=== PATIENT | female | born 1955 | race Caucasian/White ===

== ENCOUNTER 2021-06-03 20:34 | Inpatient (IN) | payer MEDICARE, OTHER ==
[~2021-06-03] VITALS: Ht 167.6 cm; Wt 100.7 kg
--- NOTE | 2021-06-03 20:34 | NUR ---
[id number] FROM [facility] FOR ABD PAIN X 3MO, REPORT OF BLOOD IN VOMIT THIS AM. PT S/P LAPAROTOMY; DRESSING TO ABD C/D/I. A/OX2. TOLERATING O2 4LPM AT 98% CONNECTED PT TO POX AND MONITOR.
--- NOTE | 2021-06-03 21:23 | NUR ---
LFA #20G S/L; PATENT AND INTACT
[2021-06-03 21:31] LABS: BASOPHILS % (AUTO) 0.4 % (0.0-2.0); EOSINOPHILS % (AUTO) 0.5 % (0.0-6.0); HEMATOCRIT 27 % (33-45); HEMOGLOBIN 8.9 g/dL (11.5-14.8); LYMPHOCYTES # (AUTO) 0.2 K/uL (0.8-4.8); LYMPHOCYTES % (AUTO) 2.1 % (20.0-44.0); MEAN CORPUSCULAR HGB CONC 33 g/dl (31.0-36.0); MEAN CORPUSCULAR VOLUME 84 fL (82-100); MONOCYTES # (AUTO) 0.8 K/uL (0.1-1.30); MONOCYTES % (AUTO) 7.2 % (2.0-12.0); NEUTROPHILS # (AUTO) 9.7 K/uL (1.8-8.9); NEUTROPHILS % (AUTO) 89.8 % (43.0-81.0); PLATELET COUNT (AUTO) 192 K/uL (150-450); RED BLOOD CELL COUNT(AUTO) 3.27 MIL/uL (4.0-5.2); WHITE BLOOD COUNT (AUTO) 10.8 K/uL (4.3-11.0)
[2021-06-03 21:45] LABS: CALCIUM, SERUM 7.5 mg/dL (8.5-10.1); CREATININE 0.7 mg/dL (0.6-1.3); POTASSIUM 3.9 mmol/L (3.5-5.1)
--- NOTE | 2021-06-03 21:45 | NUR ---
URINE COLLECTED AND SENT TO LAB
[2021-06-03 21:59] LABS: ALBUMIN 1.6 g/dL (3.4-5.0); BILIRUBIN,DIRECT 0.6 mg/dL (0.0-0.2); BILIRUBIN,TOTAL 0.9 mg/dL (0.2-1.0); TOTAL PROTEIN, SERUM 6.2 g/dL (6.4-8.2)
[2021-06-03 22:09] LABS: BILIRUBIN,URINE SMALL (NEGATIVE); COLOR,URINE YELLOW (YELLOW); LEUKOCYTE ESTERASE ,URINE NEGATIVE (NEGATIVE); NITRITE, URINE NEGATIVE (NEGATIVE); PROTEIN,URINE NEGATIVE (NEGATIVE); UGLUCOSE NEGATIVE (NEGATIVE)
[2021-06-03 22:12] LABS: BACTERIA,URINE 1+ /HPF (None Seen); SQUAMOUS EPITHELIAL CELL,UR 21-50 /HPF (None Seen)
--- NOTE | 2021-06-03 22:51 | NUR ---
PT TAKEN TO CT VIA JUAN
[2021-06-03] MEDS ORDERED: IOHEXOL-300 100 ML VIAL IV ONE (22:54)
--- NOTE | 2021-06-04 | NUR ---
MRSA SWAB COLLECTED AND SENT TO LAB. PATIENT'S BELONGINGS LIST DONE.
[2021-06-04] MEDS ORDERED: PANTOPRAZOLE 40 MG VIAL ONE ×3 (01:34→09:11)
[2021-06-04] MEDS ORDERED: PANTOPRAZOLE 40 MG VIAL IV ONE (02:00)
--- NOTE | 2021-06-04 02:02 | NUR ---
CALLED [facility] FOR POSS TRANSFER. SX WAS DONE @ [facility]. PER [facility], NO BEDS AVAILABLE. CAN TRY IN AM.
[2021-06-04 02:47] LABS: BASOPHILS % (AUTO) 0.1 % (0.0-2.0); EOSINOPHILS % (AUTO) 0.6 % (0.0-6.0); HEMATOCRIT 26 % (33-45); HEMOGLOBIN 8.5 g/dL (11.5-14.8); LYMPHOCYTES # (AUTO) 0.4 K/uL (0.8-4.8); LYMPHOCYTES % (AUTO) 3.5 % (20.0-44.0); MEAN CORPUSCULAR HGB CONC 33 g/dl (31.0-36.0); MEAN CORPUSCULAR VOLUME 83 fL (82-100); MONOCYTES # (AUTO) 0.8 K/uL (0.1-1.30); MONOCYTES % (AUTO) 7.2 % (2.0-12.0); NEUTROPHILS # (AUTO) 9.3 K/uL (1.8-8.9); NEUTROPHILS % (AUTO) 88.6 % (43.0-81.0); PLATELET COUNT (AUTO) 198 K/uL (150-450); RED BLOOD CELL COUNT(AUTO) 3.15 MIL/uL (4.0-5.2); WHITE BLOOD COUNT (AUTO) 10.5 K/uL (4.3-11.0)
[2021-06-04] MEDS ORDERED: LABETALOL 20 MG/4 ML VIAL IV PRN (03:30)
[2021-06-04] MEDS ORDERED: ONDANSETRON HCL/PF 4 MG/2 ML VIAL ONE (06:48)
[2021-06-04] MEDS: ONDANSETRON HCL/PF 4 MG/2 ML VIAL IVP PRN (06:50)
[2021-06-04] MEDS ORDERED: ZOLP5TAB8 PO (08:15)
[2021-06-04] MEDS ORDERED: INSU100V11 SQ (08:15)
[2021-06-04] MEDS ORDERED: POLY17PO4 PO (08:15)
[2021-06-04] MEDS ORDERED: ACET-868 PO (08:15)
[2021-06-04] MEDS ORDERED: BISA10SU11 RC (08:15)
[2021-06-04] MEDS ORDERED: CALC500T13 PO (08:15)
[2021-06-04] MEDS ORDERED: DOCU-141 PO (08:15)
[2021-06-04] MEDS ORDERED: METO25TA20 PO (08:15)
[2021-06-04] MEDS ORDERED: GABA600T12 PO (08:15)
[2021-06-04] MEDS ORDERED: PARO40TA4 PO (08:15)
[2021-06-04] MEDS ORDERED: METO-295 PO (08:15)
[2021-06-04] MEDS ORDERED: LEVO500T90 PO (08:15)
[2021-06-04] MEDS ORDERED: SIME80TA15 PO (08:15)
[2021-06-04] MEDS ORDERED: LORA-259 PO (08:15)
[2021-06-04] MEDS ORDERED: FERR325T23 PO (08:15)
[2021-06-04] MEDS ORDERED: MAGN400T26 PO (08:15)
[2021-06-04] MEDS ORDERED: GLUC1KIT IM (08:15)
[2021-06-04] MEDS ORDERED: HYDR-4209 PO (08:15)
[2021-06-04] MEDS ORDERED: SODI1TAB66 PO (08:15)
[2021-06-04] MEDS ORDERED: MULT-594 PO (08:15)
[2021-06-04] MEDS ORDERED: ATOR10TA PO (08:15)
[2021-06-04] MEDS ORDERED: HYDR-3980 PO (08:15)
[2021-06-04] MEDS ORDERED: LACT10SO3 PO (08:15)
[2021-06-04] MEDS ORDERED: FURO-144 PO (08:15)
[2021-06-04] MEDS ORDERED: MAGN400O6 PO (08:15)
[2021-06-04] MEDS ORDERED: BUSP5TAB3 PO (08:15)
[2021-06-04] MEDS ORDERED: SPIR100T5 PO (08:15)
[2021-06-04] MEDS ORDERED: HYDR4TAB4 PO (08:15)
[2021-06-04] MEDS ORDERED: NA P133E RC (08:15)
[2021-06-04] MEDS ORDERED: ASCO-352 PO (08:15)
[2021-06-04] MEDS ORDERED: CEFTRIAXONE 1 G in IV D5W 50 ML IV SCH (09:00)
[2021-06-04] MEDS ORDERED: PANTOPRAZOLE 40 MG VIAL IV SCH (09:00)
[2021-06-04] MEDS ORDERED: MORPHINE SULFATE INJ 2 MG/ML DISP.SYRIN ONE (09:07)
[2021-06-04] MEDS: MORPHINE SULFATE INJ 2 MG/ML DISP.SYRIN IV PRN ×3 (09:10→21:41)
[2021-06-04] MEDS: PANTOPRAZOLE 40 MG VIAL IV SCH ×2 (09:12→20:04)
[2021-06-04] MEDS: CEFTRIAXONE 1 G in IV D5W 50 ML IV SCH (09:19)
--- NOTE | 2021-06-04 12:21 | NUR ---
BED 117-2
[2021-06-04] MEDS ORDERED: BISACODYL SUPP (10 MG) 10 MG/SUPP.RECT SUPP.RECT RC PRN (12:30)
[2021-06-04] MEDS ORDERED: LORAZEPAM 1 MG TABLET PO PRN (12:30)
[2021-06-04] MEDS ORDERED: MAGNESIUM HYDROXIDE 30 ML UDC PO PRN (12:30)
[2021-06-04] MEDS ORDERED: POLYETHYLENE GLYCOL 3350 17 GM POWD.PACK PO PRN (12:30)
[2021-06-04] MEDS ORDERED: NA PHOS,M-B/NA PHOS,DI-BA 1 EA ENEMA RC PRN (12:30)
[2021-06-04] MEDS ORDERED: IV D5/ 0.9% NACL 1,000 ML IV ONE (13:00)
--- NOTE | 2021-06-04 13:03 | NUR ---
BED WAS GIVEN BY RN ZAIRA RM 117-2
[2021-06-04] MEDS ORDERED: DIATR MEGLU/DIATRIZOATE SODIUM 120 ML BOTTLE (GASTROGRAPHIN) ONE (13:18)
[2021-06-04] MEDS ORDERED: LACTULOSE 10 G/15 ML UDC (PYXIS) PO PRN (13:30)
--- NOTE | 2021-06-04 13:48 | NUR ---
REPORT GIVEN TO JER GLEASON FOR KAREN
[2021-06-04] MEDS: CALCIUM CARBONATE 500 MG TAB.CHEW PO SCH ×2 (15:23→17:00)
--- NOTE | 2021-06-04 15:30 | NUR ---
RN NOTES; PT ARRIVED FROM ER AT 1530. PT A/O4, PT C/O GENERALIZED BODY PAIN 8/10 PRN GIVEN. WILL CONTINUE TO MONITOR.
[2021-06-04 16:00] VITALS: BP 109/63
[2021-06-04] MEDS: GABAPENTIN 300 MG CAPSULE PO SCH (17:00)
[2021-06-04] MEDS: DOCUSATE SODIUM 100 MG CAPSULE PO SCH (17:00)
[2021-06-04] MEDS: METOPROLOL TARTRATE 25 MG TABLET PO SCH (17:00)
[2021-06-04] MEDS: SIMETHICONE 80 MG TAB.CHEW PO SCH ×2 (17:15→23:28)
--- NOTE | 2021-06-04 18:32 | NUR ---
RN CLOSING NOTES; RECEIVED PT FROM ER WITH C/O ABDOMINAL PAIN FOR 3 MONTHS. PT A/OX4. ABLE TO MEET NEEDS KNOWN. NO SOB OR DISTRESS AT THIS TIME. PT ON 02 AT 2LPM VIA NC. PT IS NPO AT THIS TIME. RN ATTEMPTED TO ASSESS PT SKIN, PT REFUSED AND STATES SHE IS IN TOO MUCH PAIN TO BE MOVED AT THIS TIME. LFA #20 RUNNING D5NS 1000ML @75ML/HR. PT KEPT CLEAN, DRY AND COMFORTABLE. PAIN MANAGED WITH MEDICATION AND TOLERATING WELL. ALL SAFETY MEASURES RENDERED, BED IN LOWEST POS. LOCKED WITH CALL LIGHT WITHIN REACH. ENDORSED TO WOMEN'S LACROSSE COACH RN.
--- NOTE | 2021-06-04 19:15 | NUR ---
RECEIVED PT ON BED AWAKE ALERT ORIENTED X3 ON O2 3L VIA NC SPO2 97% NO SIGN OF RESPIRATORY DISTRESS,HAVE L WRIST #20 WITH PATENT AND FLUSHED WITH ONGOING D5 NS @ 75ML/HR INFUSING WELL, PT HAVE SURGICAL WOUND ON MID ABDOMEN S/P LAPAROTOMY FOR SMALL BOWEL OBSTRUCTION, BED ON LOWEST POSITION AND LOCKED SIDE RAILS UP X2 CALL LIGHT WITH N REACH WILL CONT TO MONITOR Addendum: 06/04/21 at 8543 by SHAR CABRERA RN PT IS TOTAL NPO INCLUDING MEDS PER THE AM SHIFT NURSE PER THE ORDER OF DR GILL
[2021-06-04 20:00] VITALS: BP 109/59
--- NOTE | 2021-06-04 21:10 | NUR ---
PT HAVE A VERY LARGE BOWEL MOVEMENT LOOSE STOOL BROWN PT ALSO BURF AND PASS FLATULENCE, COMPLAINT OF PAIN IN BACK 03/08 WILL GIVE PRN MEDS, WILL CONT TO MONITOR THE PT
--- NOTE | 2021-06-04 23:05 | NUR ---
REPORT GIVEN TO MIKAELA GLEASON FOR KAREN
--- NOTE | 2021-06-04 23:10 | NUR ---
RELAY TECHNICIAN OPENING NOTES: RECEIVED PT ON BED AWAKE ALERT ORIENTED X4 ON NC 3L O2 SATURATION 97% NO SIGN OF RESPIRATORY DISTRESS, NO SOB NOTED, L WRIST #20 WITH PATENT AND FLUSHED WITH ONGOING D5 NS @ 75ML/HR INFUSING AND TOLERATED WELL, PT HAS SURGICAL WOUND ON MID ABDOMEN S/P LAPAROTOMY FOR SMALL BOWEL OBSTRUCTION, BED ON LOWEST POSITION AND LOCKED SIDE RAILS UP X2 CALL LIGHT WITH N REACH WILL CONT TO MONITOR. PATIENT ALSO REPORTED TO HAVE HAD LARGE BM
[2021-06-05] VITALS: BP 108/55
[2021-06-05 04:00] VITALS: BP_SYST 109; BP_SYST 149; BP_DIAS 75; BP_DIAS 92
[2021-06-05] MEDS: SIMETHICONE 80 MG TAB.CHEW PO SCH ×4 (06:00→23:54)
--- NOTE | 2021-06-05 06:48 | NUR ---
ORTHOTIST OR PROSTHETIST CLOSING NOTES: PATIENT IN BED, A/O X4, TELE MONITOR SHOWS NSR WITH PAUSING, PATIENT NPO INCLUDING MEDS, L. FOREARM #20 RUNNING D5 NS AT 75 ML/HR, 2L NC SATURATING 98%, NO SOB, NO DISTRESS NOTED, BED AT LOWEST POSITION, BRAKES LOCKED AND IN POSITION, SIDE RAILS UP X2, CALL LIGHT WITHIN REACH, WILL CONTINUE TO MONITOR AND IMPLEMENT NURSING INTERVENTIONS, WILL ENDORSE TO DAY SHIFT NURSE.
--- NOTE | 2021-06-05 06:58 | NUR ---
WELDER PIPE MAKING CLOSING NOTES: MECHANICAL TECH AND I ATTEMPTED TO CLEAN PATIENT THROUGHOUT NIGHTSHIFT, PATIENT REFUSED REPEATEDLY, NOW AT 0700 CLAIMS SHE WANTS TO BE CLEANED. 0640 APPROACHED PATIENT TO CLEAN PATIENT, SHE CLAIMED TO WANT TO BE CHANGED LATER, 0645 CALLS US TO BE CLEANED.
--- NOTE | 2021-06-05 07:35 | NUR ---
RN OPENING NOTE RECEIVE REPORT FROM MARINE SERVICE MANAGER NURSE. PATIENT IN STABLE CONDITION AT TIME OF REPORT WITH NO SIGN OF DISTRESS. ON OXYGEN VIA NC AT 2L/MIN. O2 SAT 98%. HAD ONE LARGE BOWEL MOVEMENT DURING MARINE SERVICE MANAGER. PATIENT IS NPO INCLUDING MEDICATION. WILL FOLLOW UP WITH ORDER. PROPER ISOLATION PRECAUTION IN PLACE. ALL SAFETY MEASURE IN PLACE. BED IN LOWEST POSITION WITH HOB ELEVATED AND 3 SIDE RAIL UP. CALL LIGHT WITHIN REACH. WILL CONTINUE TO MONITOR.
[2021-06-05 08:00] VITALS: BP 122/57
[2021-06-05] MEDS: CEFTRIAXONE 1 G in IV D5W 50 ML IV SCH (08:39)
[2021-06-05] MEDS: PANTOPRAZOLE 40 MG VIAL IV SCH ×2 (08:39→21:54)
[2021-06-05] MEDS: MORPHINE SULFATE INJ 2 MG/ML DISP.SYRIN IV PRN ×3 (08:40→18:24)
[2021-06-05 08:56] LABS: BASOPHILS % (AUTO) 0.2 % (0.0-2.0); EOSINOPHILS % (AUTO) 1.5 % (0.0-6.0); HEMATOCRIT 26 % (33-45); HEMOGLOBIN 8.4 g/dL (11.5-14.8); LYMPHOCYTES # (AUTO) 0.3 K/uL (0.8-4.8); LYMPHOCYTES % (AUTO) 3.3 % (20.0-44.0); MEAN CORPUSCULAR HGB CONC 33 g/dl (31.0-36.0); MEAN CORPUSCULAR VOLUME 84 fL (82-100); MONOCYTES # (AUTO) 0.6 K/uL (0.1-1.30); MONOCYTES % (AUTO) 6.9 % (2.0-12.0); NEUTROPHILS # (AUTO) 7.9 K/uL (1.8-8.9); NEUTROPHILS % (AUTO) 88.1 % (43.0-81.0); PLATELET COUNT (AUTO) 195 K/uL (150-450); RED BLOOD CELL COUNT(AUTO) 3.06 MIL/uL (4.0-5.2)
[2021-06-05] MEDS ORDERED: SPIRONOLACTONE 50 MG TABLET PO SCH (09:00)
[2021-06-05 09:01] LABS: ALBUMIN 1.6 g/dL (3.4-5.0); BILIRUBIN,TOTAL 0.7 mg/dL (0.2-1.0); CALCIUM, SERUM 7.6 mg/dL (8.5-10.1); CREATININE 0.6 mg/dL (0.6-1.3); MAGNESIUM 1.7 mg/dL (1.8-2.4); PHOSPHORUS 2.3 mg/dL (2.5-4.9); POTASSIUM 3.4 mmol/L (3.5-5.1); TOTAL PROTEIN, SERUM 6.3 g/dL (6.4-8.2)
--- NOTE | 2021-06-05 10:00 | NUR ---
ROSIBEL NOTE RECEIVED REPORT FROM FERNANDA GLEASON, TAKING OVER KAREN Addendum: 06/05/21 at 1053 by CHARLETTE CABRERA RN PATIENT IN STABLE CONDITION RESTING IN BED, SAFETY PROTOCOL IN PLACE
--- NOTE | 2021-06-05 10:15 | NUR ---
RN NOTE GAVE REPORT TO NURSE TAKING OVER PATIENT CARE. PATIENT IN STABLE CONDITION AT TIME OF REPORT WITH NO SIGN OF DISTRESS.
--- NOTE | 2021-06-05 10:53 | NUR ---
MENDER KNIT GOODS NOTE RECEIVED CALL FROM [facility] PATIENT RESID[facility], SPOKE WITH NURSE ART DISCUSSED PATIENT STATUS AND CURRENT MEDICATION
[2021-06-05] MEDS: CALCIUM CARBONATE 500 MG TAB.CHEW PO SCH ×3 (11:23→17:25)
[2021-06-05] MEDS: GABAPENTIN 300 MG CAPSULE PO SCH ×3 (11:23→17:00)
[2021-06-05] MEDS: DOCUSATE SODIUM 100 MG CAPSULE PO SCH ×2 (11:23→17:00)
[2021-06-05] MEDS: busPIRone 5 MG TABLET PO SCH (11:23)
[2021-06-05] MEDS: PAROXETINE HCL 20 MG TABLET PO SCH (11:23)
[2021-06-05] MEDS: METOPROLOL TARTRATE 25 MG TABLET PO SCH ×2 (11:24→16:31)
[2021-06-05] MEDS: MAGNESIUM OXIDE 400 MG TABLET PO SCH (11:24)
[2021-06-05] MEDS: ACETAMINOPHEN 325 MG TABLET PO PRN (12:05)
[2021-06-05 12:57] VITALS: BP 124/62
[2021-06-05 14:00] VITALS: BP 105/54
[2021-06-05] MEDS ORDERED: NEUTRA PHOS 1 POWD.PACKET PO ONE (14:00)
[2021-06-05 14:07] LABS: HEMOGLOBIN 8.3 g/dL (11.5-14.8)
--- NOTE | 2021-06-05 14:26 | NUR ---
RN NOTE PATIENT REFUSED TO SIGN MEDICAL RECORDS RELEASE FORM, PER PATIENT SHE WISHES TO DISCUSS WITH SON FIRST PRIOR TO SIGNING.
--- NOTE | 2021-06-05 16:00 | NUR ---
RN NOTE SPOKE WITH MANDIE MARTINEZ ([phone]), WAS ABLE TO GET MEDICAL RECORDS RELEASE FORM SIGNED AND [facility]
--- NOTE | 2021-06-05 18:31 | NUR ---
SUSTAINABILITY SPECIALIST CLOSING NOTES: PATIENT IN BED, A/O X4, TELE MONITOR SHOWS SR, IV ACCESS LT. FOREARM #20g SL INTACT, 2L NC , BED AT LOWEST POSITION, BRAKES LOCKED AND IN POSITION, SIDE RAILS UP X2, CALL LIGHT WITHIN REACH, WILL CONTINUE TO MONITOR AND IMPLEMENT NURSING INTERVENTIONS, WILL ENDORSE TO NIGHT NURSE FOR KAREN.
--- NOTE | 2021-06-05 19:44 | NUR ---
RN NOTES RECEIVED CARE OF PATIENT WHILE PATIENT IN BED, ASLEEP BUT EASILY AROUSES. PATIENT ON TELE MONITOR, SR AT THIS TIME. IV ACCESS ON LFA G#20 IS INTACT WITH NO SIGNS OF COMPLICATIONS. NO SIGNIFICANT FINDINGS UPON INITIAL NURSING ASSESSMENTS. ALL SAFETY MEASURES RENDERED, BED AT LOWEST POSITION, WHEELS ARE LOCKED, BED ALARM IS ON, CALL LIGHT WITHIN REACH. WILL CONTINUE TO MONITOR FOR ANY CHANGES IN PATIENT'S CONDITION.
[2021-06-05 20:00] VITALS: BP 93/50
[2021-06-05 21:26] LABS: HEMOGLOBIN 8.3 g/dL (11.5-14.8)
[2021-06-06] VITALS: BP 94/47
[2021-06-06] MEDS: ACETAMINOPHEN 325 MG TABLET PO PRN ×2 (00:01→10:05)
[2021-06-06 04:00] VITALS: BP 98/52
[2021-06-06] MEDS: SIMETHICONE 80 MG TAB.CHEW PO SCH ×4 (06:21→23:38)
--- NOTE | 2021-06-06 07:20 | NUR ---
WAXING MACHINE OPERATOR OPENING NOTES RECEIVED PATIENT WHILE IN BED, ASLEEP BUT EASILY AROUSES. PATIENT ON TELE MONITOR, NSR AT THIS TIME. IV ACCESS ON LFA G#20, PATENT AND INTACT. NO SIGNIFICANT FINDINGS UPON ALL NURSING ASSESSMENTS THROUGHOUT THE SHIFT. ALL SAFETY MEASURES RENDERED, BED AT LOWEST POSITION, WHEELS ARE LOCKED, BED ALARM IS ON, CALL LIGHT WITHIN REACH. WILL CONTINUE TO MONITOR PATIENT.
--- NOTE | 2021-06-06 07:34 | NUR ---
RN CLOSING NOTES WILL ENDORSE THE PATIENT WHILE IN BED, ASLEEP BUT EASILY AROUSES. PATIENT ON TELE MONITOR, NSR AT THIS TIME. IV ACCESS ON LFA G#20 IS INTACT WITH NO SIGNS OF COMPLICATIONS. NO SIGNIFICANT FINDINGS UPON ALL NURSING ASSESSMENTS THROUGHOUT THE SHIFT. ALL SAFETY MEASURES RENDERED, BED AT LOWEST POSITION, WHEELS ARE LOCKED, BED ALARM IS ON, CALL LIGHT WITHIN REACH. WILL ENDORSE TO DAY SHIFT NURSE FOR KAREN.
[2021-06-06] MEDS: MORPHINE SULFATE INJ 2 MG/ML DISP.SYRIN IV PRN (07:56)
[2021-06-06 08:00] VITALS: BP 108/63
[2021-06-06] MEDS: PANTOPRAZOLE 40 MG VIAL IV SCH ×2 (08:23→20:33)
[2021-06-06] MEDS: ONDANSETRON HCL/PF 4 MG/2 ML VIAL IVP PRN ×2 (08:23→16:46)
[2021-06-06 08:29] LABS: CALCIUM, SERUM 7.4 mg/dL (8.5-10.1); CREATININE 0.6 mg/dL (0.6-1.3); PHOSPHORUS 2.2 mg/dL (2.5-4.9)
--- NOTE | 2021-06-06 09:10 | NUR ---
DIGITAL PROGRAM MANAGER NOTE RECEIVED A CALL FROM [facility]. 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 CONTACT PRECAUTIONS ENFORCED, CHARGE NURSE AND MD NOTIFIED.WILL CONTINUE TO MONITOR PATIENT.
[2021-06-06] MEDS: CALCIUM CARBONATE 500 MG TAB.CHEW PO SCH ×3 (09:30→17:00)
[2021-06-06] MEDS: PAROXETINE HCL 20 MG TABLET PO SCH (09:31)
[2021-06-06] MEDS: SPIRONOLACTONE 25 MG TABLET PO SCH (09:31)
[2021-06-06] MEDS: DOCUSATE SODIUM 100 MG CAPSULE PO SCH ×2 (09:32→17:00)
[2021-06-06] MEDS: MAGNESIUM OXIDE 400 MG TABLET PO SCH (09:32)
[2021-06-06] MEDS: METOPROLOL TARTRATE 25 MG TABLET PO SCH ×2 (09:32→17:07)
[2021-06-06] MEDS: GABAPENTIN 300 MG CAPSULE PO SCH ×3 (09:32→17:00)
[2021-06-06] MEDS: busPIRone 5 MG TABLET PO SCH (09:32)
[2021-06-06] MEDS: CEFTRIAXONE 1 G in IV D5W 50 ML IV SCH (10:39)
[2021-06-06 12:00] VITALS: BP 125/67
[2021-06-06 12:15] LABS: BASOPHILS % (AUTO) 0.2 % (0.0-2.0); HEMATOCRIT 33 % (33-45); HEMOGLOBIN 9.8 g/dL (11.5-14.8); LYMPHOCYTES # (AUTO) 0.5 K/uL (0.8-4.8); LYMPHOCYTES % (AUTO) 4.5 % (20.0-44.0); MEAN CORPUSCULAR HGB CONC 30 g/dl (31.0-36.0); MEAN CORPUSCULAR VOLUME 91 fL (82-100); MONOCYTES # (AUTO) 0.8 K/uL (0.1-1.30); MONOCYTES % (AUTO) 7.9 % (2.0-12.0); NEUTROPHILS # (AUTO) 8.7 K/uL (1.8-8.9); NEUTROPHILS % (AUTO) 86.4 % (43.0-81.0); PLATELET COUNT (AUTO) 181 K/uL (150-450); RED BLOOD CELL COUNT(AUTO) 3.59 MIL/uL (4.0-5.2); WHITE BLOOD COUNT (AUTO) 10.1 K/uL (4.3-11.0)
[2021-06-06] MEDS: HYDROMORPHONE 1 MG/1 ML DISP.SYRIN IV PRN ×3 (12:57→20:34)
[2021-06-06] MEDS ORDERED: NEUTRA PHOS 1 POWD.PACKET PO ONE (13:00)
[2021-06-06 16:00] VITALS: BP 131/96
--- NOTE | 2021-06-06 19:21 | NUR ---
WELDER APPRENTICE COMBINATION CLOSING NOTES PATIENT WHILE IN BED, ASLEEP BUT EASILY AROUSES. PATIENT ON TELE MONITOR, NSR AT THIS TIME. IV ACCESS ON LFA G#20, PATENT AND INTACT. NO SIGNIFICANT FINDINGS UPON ALL NURSING ASSESSMENTS THROUGHOUT THE SHIFT. ALL SAFETY MEASURES RENDERED, BED AT LOWEST POSITION, WHEELS ARE LOCKED, BED ALARM IS ON, CALL LIGHT WITHIN REACH. WILL ENDORSE PATIENT FOR CONTINUITY OF CARE.
--- NOTE | 2021-06-06 19:25 | NUR ---
RN OPENING NOTES RECEIVED CARE OF PATIENT WHILE PATIENT IN BED, AWAKE A/O X3 AND ABLE TO VERBALIZE NEEDS. PATIENT ON TELE MONITOR, NSR AT THIS TIME. IV ACCESS ON RIGHT UPPER ARM MIDLINE IS INTACT WITH NO SIGNS OF COMPLICATIONS. NO SIGNIFICANT FINDINGS UPON INITIAL NURSING ASSESSMENTS. ALL SAFETY MEASURES RENDERED, BED AT LOWEST POSITION, WHEELS ARE LOCKED, BED ALARM IS ON, CALL LIGHT WITHIN REACH. WILL CONTINUE TO MONITOR FOR ANY CHANGES IN PATIENT'S CONDITION
[2021-06-06 20:00] VITALS: BP 108/65
[2021-06-06] MEDS: MUPIROCIN OINT 2% 22 GM TUBE NS SCH (20:33)
--- NOTE | 2021-06-06 21:20 | NUR ---
RN NOTES PATIENT WAS EXPRESSING SEVERE PAIN ON HER ABDOMEN. PRN DILAUDID 1MG WAS ADMINISTERED AT 2033, INTERVENTION WAS EFFECTIVE PATIENT EXPRESSED SIGNIFICANT REDUCTION IN PAIN. VITAL SIGNS REMAIN WITHIN NORMAL LIMITS, NO SIGNS OF DISTRESS NOTED, NO SOB NOTED. WILL CONTINUE TO MONITOR PATIENT.
[2021-06-06] MEDS: LACTULOSE 10 G/15 ML UDC (PYXIS) PO SCH ×2 (21:41→22:00)
--- NOTE | 2021-06-06 21:41 | NUR ---
RN NOTES THE 2100 DOSE OF LACTULOSE 10 G WAS ADMINISTERED AT 2140. WILL HOLD THE 2200 DOSE OF LACTULOSE.
[2021-06-06 21:42] LABS: HEMOGLOBIN 10.7 g/dL (11.5-14.8)
[2021-06-07] VITALS (8 sets, daily range): BP systolic 82–122; BP diastolic 38–57
[2021-06-07] MEDS: HYDROMORPHONE 1 MG/1 ML DISP.SYRIN IV PRN ×3 (03:07→19:05)
[2021-06-07] MEDS: SIMETHICONE 80 MG TAB.CHEW PO SCH ×3 (05:40→17:20)
--- NOTE | 2021-06-07 06:32 | NUR ---
RN CLOSING NOTES WILL ENDORSE CARE OF PATIENT WHILE PATIENT IN BED, AWAKE A/O X3 AND ABLE TO VERBALIZE NEEDS. PATIENT EXPRESSED SEVERE PAIN THROUGHOUT THE SHIFT. DILAUDID GIVEN AT 2033 AND 336. TREATMENT EFFECTIVE FOR A SHORT TIME, WILL CONTINUE TO MONITOR PAIN. PATIENT ON TELE MONITOR, NSR AT THIS TIME. IV ACCESS ON RIGHT UPPER ARM MIDLINE IS INTACT WITH NO SIGNS OF COMPLICATIONS. ALL SAFETY MEASURES RENDERED, BED AT LOWEST POSITION, WHEELS ARE LOCKED, BED ALARM IS ON, CALL LIGHT WITHIN REACH. WILL ENDORSE TO DAY SHIFT NURSE FOR KAREN.
--- NOTE | 2021-06-07 07:38 | NUR ---
RN OPENING NOTE RECEIVE REPORT FROM TECH ED/WOODSHOP TEACHER NURSE. PATIENT IN STABLE CONDITION AT TIME OF REPORT WITH NO SIGN OF DISTRESS. ON ROOM AIR WITH O2 SAT 98%. LOWER EXTREMITY EDEMA. GUEVARA MIDLINE FLUSH AND HEP LOCK. CONTINUE PAIN MANAGEMENT AND BOWEL CARE WITH STOOL SOFTENER. PROPER ISOLATION PRECAUTION IN PLACE. ALL SAFETY MEASURE IN PLACE. BED ON LOWEST POSITION WITH HOB ELEVATED AND 3 SIDE RAIL UP. CALL LIGHT WITHIN REACH. WILL CONTINUE TO MONITOR.
[2021-06-07 08:04] LABS: CALCIUM, SERUM 7.8 mg/dL (8.5-10.1); CREATININE 1.6 mg/dL (0.6-1.3); PHOSPHORUS 3.3 mg/dL (2.5-4.9); POTASSIUM 4.3 mmol/L (3.5-5.1)
[2021-06-07] MEDS: PANTOPRAZOLE 40 MG VIAL IV SCH ×2 (08:15→21:45)
[2021-06-07] MEDS: GABAPENTIN 300 MG CAPSULE PO SCH ×3 (08:16→16:04)
[2021-06-07] MEDS: CALCIUM CARBONATE 500 MG TAB.CHEW PO SCH ×3 (08:16→16:05)
[2021-06-07] MEDS: DOCUSATE SODIUM 100 MG CAPSULE PO SCH ×2 (08:16→16:04)
[2021-06-07] MEDS: PAROXETINE HCL 20 MG TABLET PO SCH (08:18)
[2021-06-07] MEDS: MUPIROCIN OINT 2% 22 GM TUBE NS SCH ×2 (08:19→21:00)
[2021-06-07] MEDS: busPIRone 5 MG TABLET PO SCH (08:19)
[2021-06-07] MEDS: SPIRONOLACTONE 25 MG TABLET PO SCH (08:20)
[2021-06-07] MEDS: CEFTRIAXONE 1 G in IV D5W 50 ML IV SCH (08:20)
[2021-06-07] MEDS: MAGNESIUM OXIDE 400 MG TABLET PO SCH (08:21)
[2021-06-07] MEDS: METOPROLOL TARTRATE 25 MG TABLET PO SCH ×2 (08:24→17:00)
[2021-06-07 08:33] LABS: HEMOGLOBIN 10.9 g/dL (11.5-14.8)
[2021-06-07] MEDS ORDERED: LACT10SO58 PO (09:57)
[2021-06-07 13:50] LABS: HEMOGLOBIN 10.4 g/dL (11.5-14.8)
--- NOTE | 2021-06-07 15:01 | NUR ---
RN NOTE PATIENT WAS CLEAN, CHANGED AND REPOSITION WITH HELP FROM REVIEW NURSE. BED LINEN CHANGED. ABDOMINAL DRESSING FROM SURGERY AT [facility] WAS SOIL. DRESSING WAS CHANGED. DRESSING CLEAN AND DRY. Z-GUARD APPLIED TO SACRAL.
--- NOTE | 2021-06-07 15:55 | NUR ---
RN NOTE PATIENT READY TO BE DISCHARGED. ORDER PUT IN BY DR. SOTO. REPORT WAS GIVEN TO ALISSA GLEASON AT [facility]. SCHEDULE MACHINE FANCY STITCHER TIME AT 1900.
--- NOTE | 2021-06-07 17:15 | NUR ---
RN NOTE DID NOT ADMINISTER METOPROLOL. HAVE HAVE SIGNIFICANT DECREASE IN BP WHEN ADMINISTERED IN MORNING SHIFT. BLOOD PRESSURE WENT FROM 109/38 TO 82/38. CURRENT BLOOD PRESSURE AT 1600: 122/57.
--- NOTE | 2021-06-07 18:24 | NUR ---
RN CLOSING NOTE PATIENT HAVE BEEN STABLE WITH NO SIGN OF DISTRESS THROUGH OUT SHIFT. ON ROOM AIR MOST OF SHIFT WITH O2 95% AND ABOVE. PUT BACK ON NC AT 2L/MIN DUE TO DECREASE O2 SAT AT 90%. UNABLE TO CLEAR FLAME FROM THROAT. DILAUDID WAS GIVEN FOR PAIN AT 0726. PAIN WAS TOLERABLE THROUGH OUT SHIFT. BLOOD PRESSURE HAVE BEEN AT DIFFERENT RANGE. PATIENT WAS CHANGED AND REPOSITION. BED LINEN REPLACED. DISCHARGED ORDER IN PLACE. ALL PAPER WORK DONE. PATIENT SIGN DISCHARGE PAPERWORK. WAITING FOR AMBULANCE CONCENTRATOR OPERATOR. ALL SAFETY MEASURE IN PLACE. BED ON LOWEST POSITION WITH HOB ELEVATED AND 3 SIDE RAIL UP. CALL LIGHT WITHIN REACH. WILL CONTINUE TO MONITOR.
--- NOTE | 2021-06-07 21:00 | NUR ---
TELE/RN NOTE PATIENT RETURNED TO [facility] FROM FACILITY WITH LOW BP AND VOMITING. PATIENTS BP UPON ARRIVAL 87/49. PATIENT IS CONFUSED WITH HALLUCINATIONS AND LETHARGIC. ALERT AND ORIENTED X 1-2. C/O NAUSEA. IV TO RIGHT UPPER ARM MIDLINE INTACT AND PATENT. STARTED ON IV NS 500ML BOLUS. PATIENT ON O2 4L VIA NC WITH NO S/SX OF RESPIRATORY DISTRESS NOTED. WILL CONTINUE TO MONITOR.
--- NOTE | 2021-06-07 21:15 | NUR ---
TELE/RN NOTE BP DECREASED TO 60/41 WITH HR 56. CONTINUES ON IV NS BOLUS. ADMINISTERED PRN ZOFRAN FOR NAUSEA.
[2021-06-07] MEDS ORDERED: IV NS 0.9% 500 ML IV ONE ×2 (21:30→23:00)
[2021-06-07] MEDS: ONDANSETRON HCL/PF 4 MG/2 ML VIAL IVP PRN (21:39)
[2021-06-07] MEDS: LACTULOSE 10 G/15 ML UDC (PYXIS) PO SCH (22:00)
--- NOTE | 2021-06-07 22:00 | NUR ---
TELE/RN NOTE BP UP TO 109/44. PATIENT ALERT AND ORIENTED X 1. CONTINUES TO BE LETHARGIC. WILL CONTINUE TO MONITOR.
[2021-06-07] MEDS ORDERED: LORAZEPAM INJ 2 MG/ML VIAL IV PRN (22:30)
--- NOTE | 2021-06-07 22:30 | NUR ---
TELE/RN NOTE PATIENTS HR GOING UP TO 172. NOTIFIED BANK TELLER MACHINE MECHANIC MD RICHARD WITH NEW ORDER FOR ATIVAN IVP 0.5MG PRN. ORDER INPUTTED AND ADMINISTERED.
--- NOTE | 2021-06-07 22:52 | NUR ---
TELE/RN NOTE BP UP TO 140/94 HR 82. NEW ORDER FROM HORSE SHOW JUDGE MD RICHARD FOR IVF NS 0.9% @ 100ML/HR. ORDER INPUTTED AND CARRIED OUT. Addendum: 06/07/21 at 2300 by YOSSI DEL ROSARIO RN BP RECHECK SHOWS BP 65/42 HR 94. NOTIFIED WITH NEW ORDER FOR NS BOLUS AND IVF @ 100ML/HR.
--- NOTE | 2021-06-07 23:10 | NUR ---
TELE/RN NOTE PATIENTS BP REMAINS LOW AT 58/44. HR UP TO 150. EKG SHOWS SVT. MD YARD SPOTTER HILARY INFORMED WITH NEW ORDER TO TRANSFER PATIENT TO ICU.
--- NOTE | 2021-06-07 23:26 | NUR ---
RN NOTES REPORT GIVEN TO ED,RN ( ICU CHARGE) ALL PERTINENT PT INFO GIVEN. PT TO BE TRANSFERRED TO ICU IN ROOM 254.
[2021-06-07] MEDS ORDERED: PHENYLEPHRINE 100 MG in IV NS 0.9% 240 ML IV PRN (23:30)
--- NOTE | 2021-06-07 23:34 | NUR ---
RN NOTES CALLED PT'S SON ( DOT- [phone]) TO INFORM THAT PT HAS BEEN TRANSFERRED TO ICU RM 254. HE ACKNOWLEDGED.
[2021-06-07] MEDS ORDERED: PHENYLEPHRINE 10 MG/ML VIAL ONE (23:36)
[2021-06-07] MEDS ORDERED: AMIODARONE 150 MG/3 ML VIAL IV ONE (23:52)
[2021-06-08] VITALS (35 sets, daily range): BP systolic 44–141; BP diastolic 16–112
[2021-06-08] MEDS ORDERED: AMIODARONE 150 MG in IV D5W 100 ML IV ONE
[2021-06-08] MEDS ORDERED: IV NS 0.9% 1,000 ML IV PRN
[2021-06-08] MEDS: AMIODARONE 450 MG in IV D5W 241 ML IV PRN ×2 (00:08→10:15)
[2021-06-08] MEDS: SIMETHICONE 80 MG TAB.CHEW PO SCH ×4 (00:18→12:00)
[2021-06-08] MEDS: PHENYLEPHRINE 100 MG in IV NS 0.9% 240 ML IV PRN ×3 (01:35→11:56)
[2021-06-08] MEDS ORDERED: VASOPRESSIN INJ 40 UNIT in IV NS 0.9% 38 ML IV PRN (02:30)
[2021-06-08] MEDS ORDERED: VASOPRESSIN INJ 20 UNIT/ML VIAL ONE (02:33)
[2021-06-08 03:36] LABS: CALCIUM, SERUM 7.5 mg/dL (8.5-10.1); CREATININE 2.3 mg/dL (0.6-1.3)
--- NOTE | 2021-06-08 03:45 | NUR ---
CLINICAL INFORMATICS MANAGER PT WAS TRANSFERRED FROM [facility] D/T HYPOTENSION AND A.FIB.WITH RVR. AFTER GIVING TOTALLY 2 L. OF NS BOLUS, STARTED AMIODARONE, PHENYLEPHRINE & VASOPRESSIN DRIPS. F/C WAS INSERTED. FAMILY WAS NOTIFIED ABOUT PT'S CONDITION & PROGNOSIS. /SON-DOT SHEA PHONE [phone]/ CODE STATUS WAS CHANGED TO DNR/DNI. PT IS OBTUNDED, RESPONSE TO PAINFUL STIMULI ONLY. TOTALLY ANURIC. ALL PRESSORS MAX. SBP 70/25, HR 142. NO 3-RD PRESSOR PER HILARY YANEZ. HOME IMPROVEMENT INSTALLER BLOOD RETURN FROM RIGHT UPPER ARM MIDLINE. SO LAB WORK WAS DONE BY DRAWING BLOOD PERIPHERALLY. PT IS IN CRITICAL CONDITION. SCOPE-A.FIB .WILL CONTINUE CLOSE MONITORING.
[2021-06-08 03:52] LABS: BASOPHILS # (AUTO) 0.2 K/uL (0.0-0.2); EOSINOPHILS % (AUTO) 0.1 % (0.0-6.0); HEMATOCRIT 36 % (33-45); HEMOGLOBIN 11.3 g/dL (11.5-14.8); LYMPHOCYTES # (AUTO) 0.4 K/uL (0.8-4.8); LYMPHOCYTES % (AUTO) 1.6 % (20.0-44.0); MEAN CORPUSCULAR HGB CONC 31 g/dl (31.0-36.0); MEAN CORPUSCULAR VOLUME 87 fL (82-100); MONOCYTES # (AUTO) 0.7 K/uL (0.1-1.30); MONOCYTES % (AUTO) 2.8 % (2.0-12.0); NEUTROPHILS # (AUTO) 22.6 K/uL (1.8-8.9); NEUTROPHILS % (AUTO) 94.5 % (43.0-81.0); PLATELET COUNT (AUTO) 268 K/uL (150-450); RED BLOOD CELL COUNT(AUTO) 4.14 MIL/uL (4.0-5.2); WHITE BLOOD COUNT (AUTO) 23.9 K/uL (4.3-11.0)
[2021-06-08] MEDS ORDERED: VANCOMYCIN 1 GM VIAL ONE (04:30)
[2021-06-08] MEDS ORDERED: DEXTROSE 50%-WATER 50 ML DISP.SYRIN IVP ONE (04:30)
[2021-06-08] MEDS ORDERED: VANCOMYCIN 1.5 GM in IV D5W 500ml IV ONE (04:30)
[2021-06-08] MEDS ORDERED: IV D5/0.45 NACL 500 ML IV PRN (04:30)
[2021-06-08] MEDS ORDERED: PIPERACILLIN /TAZOBACTAM 3.375 G VIAL IV ONE (05:23)
[2021-06-08] MEDS ORDERED: PIPERACILLIN /TAZOBACTAM 3.375 G in IV D5W 50 ML IV SCH ×2 (06:00→12:00)
--- NOTE | 2021-06-08 06:00 | NUR ---
OPTOMETRIC ASSISTANT PT GLUCOSE LEVEL DROPPED TO 39. PT WAS GIVEN D50%-100 ML PER HILARY OFFICE ASSISTANT ORDER. BS RECHECKED IN 30 MIN-1S 172. MAIN IV CHANGED TO D5 1/2 NS @ 90 ML/HR. STARTED ALSO ANTIBIOTICS- VANCO & ZOSYN IVPB. PT IS MORE AWAKE, RESPONSE TO VOICE, BUT DOES NOT FOLLOW ANY COMMANDS. THERE IS AN ORDER FOR PICC LINE INSERTION. COLOR WEIGHER WAS NOTIFIED.
--- NOTE | 2021-06-08 08:00 | NUR ---
RN NOTES RECEIVED PATIENT ON REGULAR MASK 10L 02-93%, AWAKE, LETHARGIC KEEP REMOVING FACE MASK. PATIENT DNR/DNI ON BEDSIDE MONITOR SHOWS A-FIB HR -131. INFUSING AMIODARONE 0.5 MG/MIN, BP- 63/29 INFUSING ALTAF-3 MCG/KG/HR MAX DOSE, AND VASOPRESSIN 0.04 MG/HR MAX DOSE. PER SON NO AGGRESSIVE TREATMENT, AND NO 3-TH PRESSOR PER HOSPITALIST. PATIENT ASKING PAIN MEDICATION GENERALIZED /10, BP 91/[address] SOTO TO ADMINISTER PAIN MEDICATION PRESCRIBED. PATIENT VOMIT X1 , ASPIRATION PRECAUTION, HELD PO SCHEDULED MEDICATION PER HOSPITALIST ORDER, PATIENT HAS ABDOMINAL INCISION PREVIOUS SURGERY. EDEMA GENERALIZED X2 PITTING. CALL LIGHT WITHIN TO REACH. ABG DONE VIA RT. AM CARE DONE, ASSIST TURN AND REPOSTION Q 2 HR. KEEP HOB ELEVATED . WILL FOLLOW UP.
--- NOTE | 2021-06-08 08:05 | NUR ---
RN NOTES BS-134 MG/DL, PATIENT CRITICAL CONDITION, BP- 63/29, P-143, NOTIFIED HOSPITALIST, PATIENT WILL SEE PSYCHOLOGICAL OPERATIONS, NO OUTPUT FROM REYZE CATHETER.
[2021-06-08 08:48] LABS: BAND % (MANUAL) 26 % (0.0-5.0); NEUTROPHILS % (MANUAL) 69 (42-76)
[2021-06-08 08:49] LABS: LYMPHOCYTES % (MANUAL) 1 % (16-48); METAMYELOCYTES % 1 % (0-0); MONOCYTES % (MANUAL) 2 % (0-11.0); MYELOCYTES % 1 % (0-0)
[2021-06-08] MEDS: HYDROMORPHONE 1 MG/1 ML DISP.SYRIN IV PRN (08:51)
--- NOTE | 2021-06-08 08:51 | NUR ---
RN NOTES ADMINISTERED DILAUDID 1 MG/ML IV PUSH BP-91/20,P-139, R-28. PER HOSPITALIST DR SOTO PATIENT WILL GET CARDIOVERSION PROCEDURE TODAY VIA DR BERMUDEZ.
[2021-06-08] MEDS: METOPROLOL TARTRATE 25 MG TABLET PO SCH (09:00)
[2021-06-08] MEDS: DOCUSATE SODIUM 100 MG CAPSULE PO SCH (09:00)
[2021-06-08] MEDS: SPIRONOLACTONE 25 MG TABLET PO SCH (09:00)
[2021-06-08] MEDS: busPIRone 5 MG TABLET PO SCH (09:00)
[2021-06-08] MEDS: PAROXETINE HCL 20 MG TABLET PO SCH (09:00)
[2021-06-08] MEDS: GABAPENTIN 300 MG CAPSULE PO SCH ×2 (09:00→12:11)
[2021-06-08] MEDS: MAGNESIUM OXIDE 400 MG TABLET PO SCH (09:00)
[2021-06-08] MEDS: CALCIUM CARBONATE 500 MG TAB.CHEW PO SCH ×2 (09:00→12:11)
[2021-06-08] MEDS ORDERED: PANTOPRAZOLE 40 MG TABLET.DR PO SCH (09:00)
[2021-06-08 09:02] LABS: ABG BASE EXCESS -14.1 mmol/L; ABG OXYGEN SATURATION 92.6 % (92.0-98.5); ABG PCO2 27.8 mmHg (35.0-45.0); ABG PH 7.245 (7.350-7.450); COHb 0.5 % (0.5-1.5); MetHb 0.3 % (0.0-1.5); O2Hb 91.9 % (94.0-97.0); SITE, ABG Left Radial; VENT MODE, BG SIMPLE MASK 6LPM
[2021-06-08] MEDS: MUPIROCIN OINT 2% 22 GM TUBE NS SCH (09:12)
[2021-06-08] MEDS: CEFTRIAXONE 1 G in IV D5W 50 ML IV SCH (09:12)
[2021-06-08] MEDS ORDERED: PANTOPRAZOLE 40 MG VIAL IV SCH (09:30)
--- NOTE | 2021-06-08 11:26 | NUR ---
RN NOTES PATIENT BEDSIDE MONITORS SHOWS SINUS TACT.
--- NOTE | 2021-06-08 11:58 | NUR ---
RN NOTES PER ABG RESULT GREEN INSPECTOR DR MARS TO PRESCRIBED BICARB 3 AMPS WITH NS @75 ML/HR, AND REPEAT ABG 1600. ORDER TAKEN AND CARRIED OUT.
[2021-06-08] MEDS ORDERED: Sodium Bicarbonate 150 MEQ in IV NS 0.9% 1,000 ML IV PRN (12:30)
[2021-06-08] MEDS ORDERED: Sodium Bicarbonate 150 MEQ in IV NS 0.9% 1,000 ML IV SCH (12:30)
--- NOTE | 2021-06-08 12:36 | NUR ---
RN NOTES STARTED BICARB 3AMPS WITH NS @75 ML/HR AT THIS TIME, SEEN PANTOGRAPH MACHINE SET UP OPERATOR AT THIS TIME, WAITING FOR NEW ORDERS.
--- NOTE | 2021-06-08 14:00 | NUR ---
RN NOTES LACTIC ACID RESULT REPORTED TO THE HOSPITALIST.
--- NOTE | 2021-06-08 15:31 | NUR ---
RN NOTES PER SON NAME JAY PATIENT COMFORT MEASURE NOTIFIED HOSPITALIST Dr SOTO, AND GET MORPHINE DRIP PER PROTOCOL. ORDER TAKEN , AND CARRIED OUT.
[2021-06-08 15:53] LABS: BILIRUBIN,DIRECT 0.6 mg/dL (0.0-0.2); BILIRUBIN,TOTAL 0.8 mg/dL (0.2-1.0)
[2021-06-08] MEDS ORDERED: MORPHINE SULFATE PF DRIP 250 MG in IV D5W 240 ML IV PRN ×2 (16:00→18:00)
--- NOTE | 2021-06-08 17:26 | NUR ---
rn notes started morphine drip at this time 1mg/ml/hr for comfort measure, bp 81/27, p-101, r-19.
[2021-06-08] MEDS ORDERED: LORAZEPAM INJ 2 MG/ML VIAL IV PRN (19:00)
--- NOTE | 2021-06-08 19:00 | NUR ---
RN NOTES TRANSFERRED PATIENT TO THE MED/SURGE UNIT AT THIS TIME, BEDSIDE REPORT GIVEN TO THE RN FOLLOW PLAN OF CARE.
--- NOTE | 2021-06-08 19:30 | NUR ---
RN NOTES: PATIENT WAS TRANSFERRED IN FROM ICU, RN/LEYDI GAVE BED SIDE ENDORSEMENT, PATIENT IS ON MORPHINE DRIP AT 2MG/HR VIA DRIP, DNR-DNI,S[place] [facility] [place], PCR AND RAPID BOTH NEGATIVE, MRSA NARES-(=), ON NON RE BREATHER MASK AT 10L/MIN,ON COMFORT MEASURE ONLY, PER ENDORSEMENT SON DOESNT WANT TO COME ONCE PATIENT PASS AWAY, TO NOTIFY [facility]. --UPON ADMISSION PATIENT LOOKS VERY PALE,COMATOSE, RESPIRATION 13 B/MINUTES ASSESSED MANUALLY, TACHYPNEA, WARM TO TOUCH, ON REYEZ CATH.
--- NOTE | 2021-06-08 19:35 | NUR ---
RN NOTES: CLOTH EDGE SINGER TAKE THE PATIENT V/S UNABLE TO GET READING ESPECIALLY BP AND MT, NOTED WITH AGONAL BREATHING, MANUALLY TAKEN RR- 4-5 BREATH /MIN,REYEZ CATH DRAINING INTO CLOUDY COLORED AROUND 50CC.
--- NOTE | 2021-06-08 19:45 | NUR ---
RN NOTES: -AT 1944 UNDERTAKER HELPER CALLED THE RN PATIENT LOOKS MORE PALE. -RN CAME AND CHECKED THE PATIENT, UNABLE TO PALPATE,CAROTID AND INGUINAL PULSE,NO MORE VISIBLE ABDOMINAL BREATHING, NO MOVEMENT OF RISING AND FALLING OF CHEST AND ABDOMEN, HER EYES IS HALF CLOSE AND STILL WARM TO TOUCH. -CALLED ISAI AND WE BOTH DOUBLE CHECK THE PATIENT, AT 1949 AYAN/LEXUS PRONOUNCE PATIENT .
--- NOTE | 2021-06-08 21:05 | NUR ---
RN NOTES: -AT 2103-CALLED [facility] AND SPOKE WITH ELLIE -GIVEN CASE #[id number]. -CN NOTIFIED.
[2021-06-08] MEDS ORDERED: KEY,NONCONTROL,TO KEEP IN PYXI 1 EA MC ONE (21:47)
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
--- NOTE | 2021-06-08 22:40 | NUR ---
RN NOTES: -AT 2235 REMAINING MORPHINE-195 ML DISCARD WITH RN/CN WITNESSED. -[place] [facility] [place].
--- NOTE | 2021-06-08 23:37 | NUR ---
ROSIBEL NOTES: -AT 2006-DR.MONIKA YANEZ/COMPRESSOR STATION ENGINEER CHIEF NOTIFIED. -ROSIBEL/AYAN NOTIFIED [employer] [facility] AND ADMITTING - [id number], NOTIFIED, HE SAID THEY DONT HAVE THE MORTUARY YET, IT WILL BE EITHER HIM OR HIS MOTHER SISTER WHO WILL ARRANGE AND THEY WILL LET US KNOW TOMORROW,MADE AWARE THAT PATIENT REMAINS WILL BE TRANSFERRED TO THE [facility].HE AGREE TO KEEP IN THE [facility]. -HE REQUEST TO GET THE BELONGINGS OF HIS MOTHER.HE WILL COME TONIGHT. Addendum: 06/08/21 at 2355 by KEN CALDERON RN ADDED NOTES: --AYAN NOTIFIED ADMITTING MANJINDER AT 1999 --[employer] [facility]-CHARLEEN CHOI NOTIFIED BY AYAN/ROSIBEL AT 2009. Addendum: 06/09/21 at 0030 by KEN CALDERON RN ADDED NOTES: ---SON CAME AND GET HER BELONGINGS AT 2226, HAND IN BY Shahriar AND HE SIGNED THE BELONGINGS LIST Addendum: 06/09/21 at 0037 by KEN CALDERON RN ADDED NOTES: -REMAINS WAS TRANSFERRED TO [facility] AT 2240.
[2021-06-09] MEDS ORDERED: VANCOMYCIN 1.25 GM in IV D5W 250 ML IV SCH (16:00)
== END 2021-06-08 19:50 | DRG 393 ==
LOC: ER 20:46 → UNDOADMIN 23:59 → ICU 23:59 → TRANSITION 06-04 08:21 → MEDSG1 06-04 13:40 → TELE1 06-04 19:00 → UNDODISIN 06-07 19:40 → TELE1 06-07 21:16 → ICU 06-07 23:11 → MED 06-08 19:23
PROVIDERS: ADMIT Internal Medicine; ATTEND Internal Medicine
PROC: 05H533Z Insertion of Infusion Device into Right Subclavian Vein, Percutaneous Approach (ICD-10-PCS; principal; 2021-06-06)
PROC: B546ZZA Ultrasonography of Right Subclavian Vein, Guidance (ICD-10-PCS; 2021-06-06)
DX: K91.89 Other postprocedural complications and disorders of digestive system (principal); N17.0 Acute kidney failure with tubular necrosis; R65.21 Severe sepsis with septic shock; G92.8 Other toxic encephalopathy; J96.91 Respiratory failure, unspecified with hypoxia; J69.0 Pneumonitis due to inhalation of food and vomit; A41.9 Sepsis, unspecified organism; K56.7 Ileus, unspecified; K92.0 Hematemesis; J98.11 Atelectasis; R18.8 Other ascites; E87.2 Acidosis; Z51.5 Encounter for palliative care; Y83.8 Other surgical procedures as the cause of abnormal reaction of the patient, or of later complication, without mention of misadventure at the time of the procedure; Y82.8 Other medical devices associated with adverse incidents; Y92.89 Other specified places as the place of occurrence of the external cause; I11.0 Hypertensive heart disease with heart failure; I50.9 Heart failure, unspecified; K74.60 Unspecified cirrhosis of liver; E11.9 Type 2 diabetes mellitus without complications; Z90.710 Acquired absence of both cervix and uterus; R57.1 Hypovolemic shock; K75.81 Nonalcoholic steatohepatitis (NASH); F41.9 Anxiety disorder, unspecified; F32.9 Major depressive disorder, single episode, unspecified; F32.A Depression, unspecified; Z68.35 Body mass index [BMI] 35.0-35.9, adult; I48.91 Unspecified atrial fibrillation; Z20.822 Contact with and (suspected) exposure to COVID-19; Z66 Do not resuscitate; E66.01 Morbid (severe) obesity due to excess calories; K66.8 Other specified disorders of peritoneum
CPT/HCPCS: 36415; 36600; 71045-TC; 74018; 74250-TC; 80048-TC; 80053-TC; 80076-TC; 81001; 82140-TC; 82247-TC; 82248-TC; 82803-TC; 82962-TC; 83605-TC; 83690-TC; 83735-TC; 84100-TC; 84484-TC; 85025-TC; 85027-TC; 85730-TC; 87040-TC; 87081-TC; A6253; A6403; C9113; C9803; G0378; J0282; J0696; J1170; J2060; J2270; J2274; J2370; J2405; J2543; J3370; J3490; J7030; J7042; J7050; J7060; Q9963; Q9967; U0003